=== PATIENT | male | born 1965 | race Caucasian/White ===

== ENCOUNTER 2019-10-22 21:00 | Emergency (ER) | payer BC ==
[~2019-10-22] VITALS: Ht 177.8 cm; Wt 115.9 kg
[2019-10-22 23:10] VITALS: BP 170/82
== END 2019-10-22 23:10 | disposition home or self-care (01) | DRG 605 ==
LOC: ED 21:00
DX: S90.31XA Contusion of right foot, initial encounter (principal); W16.622A Jumping or diving into natural body of water striking bottom causing other injury, initial encounter; Y92.833 Campsite as the place of occurrence of the external cause